=== PATIENT | female | born 1980 | race Two or more races ===

== ENCOUNTER 2025-01-16 17:25 | Emergency (ER) | payer MEDICAID, OTHER ==
[~2025-01-16] VITALS: Ht 160 cm; Wt 78.3 kg
--- NOTE | 2025-01-16 17:55 | ED.PDOC ---
Musculoskeletal HPI Comments HPI: Poor Historian. 44-year-old female presents to emergency department for right knee pain status post mechanical fall from a standing position where she fell forward on her right knee. She has been limping with her walk. Fall happened five days ago. Denies any other injuries or trauma. Vitals: temperature of 97.8F, pulse rate of 81, respiratory rate of 17, blood pressure of 134/75, and a SpO2 of 99%RA Past Medical History: Remote Knee injury from sports Past Surgical History: Denies any REVIEW OF SYSTEMS: CONSTITUTIONAL: Denies acute: fever, diaphoresis, chills, generalized weakness. HEAD: Denies acute: headache, photophobia Eyes: Denies acute: Double vision, vision loss, eye pain, eye discharge. EARS: Denies acute: tinnitus, hearing loss, ear discharge, ear pain, THROAT: Denies acute: sore throat, swelling, difficulty swallowing , pain with swallowing, change in voice. NECK: Denies acute: neck pain, neck swelling, stiff neck. HEART: Denies acute : chest pain, palpitations, LUNGS: Denies acute: SOB, wheezing, cough, hemoptysis ABDOMEN: Denies acute: abdominal pain, Nausea, Vomiting, diarrhea, melena , hematemesis, hematochezia SKIN: Denies acute: rash, redness, lesions, itchiness. EXTREMITIES: Denies acute: calf pain, numbness, tingling, weakness, denies pain in extremity. Denies acute: Low back pain. Neuro: Denies acute: focal neurological deficit, motor or sensory focal neurological deficit, tremors, seizure like activity, confusion, dizziness, change in mental status, loss of bowel or bladder function, cauda equina like symptoms. : Denies acute: dysuria, hematuria, flank pain, increase in urinary frequency. PSYCH: Denies acute: hallucination, suicidal ideation, homicidal ideation. FEMALE: Denies acute: abnormal vaginal bleeding, foul odor, unusual discharge. PHYSICAL EXAM: General: -----[id number]---acute distress, awake and alert. Head: normocephalic, atraumatic. Neck: supple, trachea is midline, no swelling. Throat: Normal phonation. Eyes:, no erythema, no purulent discharge, no proptosis, no icterus. Heart: regular rate, regular rhythm, no significant murmur appreciated. Lungs: no apparent respiratory distress, Able to speak in full sentences. No wheezing, no rhonchi, no crackles. No stridors Clear to auscultation bilaterally. Abdomen: non tender to palpation, non distended, soft, no guarding, no rebound, + bowel sounds. Neuro: Awake, Alert, oriented to name, self, situation, follows commands GCS=15. Speech is normal. Skin: no petechia, no purpura, no cyanosis, non-pale, not jaundice. Lower extremities: --no - Pitting edema no deformity, no calf TTP. Evaluation of the area of complaint: Right knee anterior tender to palpation and posterior fossa tenderness to palpation. Patient is neurovascularly intact in the affected extremity. Decreased range of motion of right knee in flexion and extension secondary to pain. No apparent swelling. Makes eye contact. moves all four extremities. Face: no apparent facial droop. Ambulating in the ED independently. ED COURSE: Time Seen by MD: 17:49 Reviewed Notes: Nurses Notes, Allergies Allergies: Coded Allergies: NO KNOWN ALLERGIES (Unverified , 01/16/25) Information Source: Patient Location: Right Was a procedure done? Was a procedure done?: No Differential Diagnosis EXT Differential Diagnosis: Deep Vein Thrombosis, Compartment Syndrome, Fracture, Sprain, Dislocation, Contusion, Strain, Septic, Neurovascular injury, Arthritis, Bursitis X-Ray, Labs, Meds, VS Vital Signs Date Time Temp Pulse Resp B/P (MAP) Pulse Ox O2 Delivery O2 Flow Rate FiO2 01/16/25 19:18 Room Air* 0 21 01/16/25 19:18 98.7 98 21 121/66 (84) 99 98.7 01/16/25 18:17 97.8 81 17 134/75 (94) 99 97.8 Current Medications Medications (Trade) Dose Ordered Sig/Juhi Route Start Time Stop Time Status Last Admin Acetaminophen/ Hydrocodone Bitart ([place] 5/325MG Tab) 1 tab ONCE ONCE PO 01/16/25 19:45 01/16/25 19:46 DC 01/17/25 01:27 Ketorolac Tromethamine (Toradol Injection) 30 mg ONCE ONCE IM 01/16/25 19:45 01/16/25 19:46 DC 01/17/25 01:27 [place] [address] Ph: [phone] DIAGNOSTIC IMAGING Diagnostic Imaging Report : [id number] Signed PATIENT: RAJENDRA HELTON ACCT: [id number] UNIT: [id number] : 1980 LOC: ER ROOM / BED: / AGE / SEX: 44 / F ADM STATUS: REG ER SERVICE 50 ORDERING PHYSICIAN: ANNA CHACON DO PROCEDURE(s): RKN3 - R KNEE 3V XRAY REASON: knee injury ORDER NUMBER(s): [id number], ACCESSION NUMBER(s): [id number] CLINICAL INDICATION: knee injury TECHNIQUE: XY R KNEE 3V XRAY Comparison: None FINDINGS: No evidence of fracture or dislocation. Mild tricompartmental OA with mild joint space narrowing, small marginal osteophytes, peaking of intercondylar spines, and small osteophytes at the poles of the patella. IMPRESSION: No evidence of fracture or dislocation. ATED BY: FELIX WEBSTER MD DICTATED DATE/TIME: 01/16/251903 SIGNED BY: FELIX WEBSTER MD SIGNED DATE/TIME: 01/16/251903 CC: Time of 1ST Reevaluation: 17:49 Reevaluation 1ST: Unchanged Patient Education/Counseling: Diagnosis, Treatment Family Education/Counseling: No Family Present Comments Patient presented with the above HPI.--right knee injury----workup was init iated. patient was found with the above mentioned diagnosis. the following medications were ordered: please refer to order lists of meds and tests obtained by myself Dr. Chacon. Patient ED course and VS have been stabilized. Patient has been reassessed in the ED and remained in a stable condition. Pertinent incidental findings were discussed with the patient and/or family. Patient/family voices understanding and is agreeable with plan. Patient has been observed in the ED adequate length of time to insure improvement/stability. Escalation of care considered: Consideration of escalation to observation or admission Knee immobilizer and crutches were given to the patient. Patient was DISCHARGED home in a stable condition. All the reports of any imaging studies that were ordered by myself were reviewed by myself. Departure 1 Departure Time of Disposition: 19:36 Impression: Primary Impression: Right knee injury Disposition: 01 HOME / SELF CARE / HOMELESS Condition: Stable Additional Instructions: Additional instructions: You MUST follow-up with your primary care/family doctor in 1 to 2 days. If you are unable to see your primary care/family doctor, please return to our emergency room for re-assessment and re-evaluation in 1 to 2 days. Return to the emergency room here in our facility or to the nearest ER [facility] if your symptoms change or worsen. CONSULTATIONS: you MUST Follow-up for consultation as soon as possible with: orthopedic doctor in 1-2 days. Please call for appointment. You MUST call the consultants office yourself to make an appointment. You may need to arrange that through your insurance and/or your primary/family doctor. If you are unable to see the technology methodology consultant in 1 to 2 days, you must return to our emergency room (or any other ER of your choice) for re-assessment and re- evaluation. Adequate fluid hydration. Below is a copy of your radiological report for follow up: [place] [address] Ph: [phone] DIAGNOSTIC IMAGING Diagnostic Imaging Report : [id number] Signed PATIENT: RAJENDRA HELTON ACCT: [id number] UNIT: [id number] : 1980 LOC: ER ROOM / BED: / AGE / SEX: 44 / F ADM STATUS: REG ER SERVICE 0074 ORDERING PHYSICIAN: ANNA CHACON DO PROCEDURE(s): RKN3 - R KNEE 3V XRAY REASON: knee injury ORDER NUMBER(s): [id number], ACCESSION NUMBER(s): [id number] CLINICAL INDICATION: knee injury TECHNIQUE: XY R KNEE 3V XRAY Comparison: None FINDINGS: No evidence of fracture or dislocation. Mild tricompartmental OA with mild joint space narrowing, small marginal osteophytes, peaking of intercondylar spines, and small osteophytes at the poles of the patella. IMPRESSION: No evidence of fracture or dislocation. ATED BY: FELIX WEBSTER MD DICTATED DATE/TIME: 01/16/251903 SIGNED BY: FELIX WEBSTER MD SIGNED DATE/TIME: 01/16/251903 CC: Discharged With: Self Critical Care Note Critical Care Time?: No I personally scribed for ANNA CHACON DO ([email or web address]) on 01/17/25 at 02:21. Electronically submitted by Eugenio Hernandez ([email or web address]). ANNA CHACON DO January 16, 2025 17:55
--- NOTE | 2025-01-16 19:06 | DVH ---
CLINICAL INDICATION: knee injury TECHNIQUE: XY R KNEE 3V XRAY Comparison: None FINDINGS: No evidence of fracture or dislocation. Mild tricompartmental OA with mild joint space narrowing, sma ll marginal osteophytes, peaking of intercondylar spines, and small osteophytes at the poles of the p atella. IMPRESSION: No evidence of fracture or dislocation.
[2025-01-17] MEDS: KETOROLAC TROMETH 60MG/2ML VIAL IM ONE (01:27)
[2025-01-17] MEDS: HYDROcodone-ACET 5/325MG TAB PO ONE (01:27)
[2025-01-17 01:50] VITALS: BP 128/79; PULSE 66; RESP 18; TEMP 97.5; O2SAT 100
== END 2025-01-17 02:01 | disposition home or self-care (01) ==
LOC: ER 17:25
DX: S89.91XA Unspecified injury of right lower leg, initial encounter (principal); W19.XXXA Unspecified fall, initial encounter; Y93.89 Activity, other specified; Y92.89 Other specified places as the place of occurrence of the external cause; Y99.8 Other external cause status
CPT/HCPCS: 29505; 73562; 96372; 99283; J1885